=== PATIENT | male | born 1965 | race Hispanic/Latino ===

== ENCOUNTER 2018-08-08 06:07 | Day surgery (SDC) | payer OTHER ==
[2018-07-18 13:37] VITALS: BMI 36.2
[2018-08-08] MEDS ORDERED: Bupivacaine 0.25% 20 ML INJ IJ ONE (07:24)
[2018-08-08] MEDS ORDERED: ceFAZolin 1 gm in NS 2 GM/200 ML BAG IVPB ONE (07:25)
[2018-08-08] MEDS ORDERED: Lidocaine/Epinephrine 1% 1:100000 10 ML IJ ONE (07:25)
[2018-08-08] MEDS ORDERED: Midazolam 2 MG/2 ML VIAL ONE (07:39)
[2018-08-08] MEDS ORDERED: Propofol 10 mg/ml Inj (20 ML) ONE ×2 (07:39→09:56)
[2018-08-08] MEDS ORDERED: Neostigmine 1:1000 (1 mg/ml) Inj ONE (09:07)
[2018-08-08] MEDS: Bupivacaine Liposomal Inj 20 ml INFIL ONE ×2 (09:14→10:19)
[2018-08-08] MEDS: Sodium Chloride 0.9% 40 ML IV ONE ×3 (09:16→10:19)
[2018-08-08] MEDS ORDERED: HYDROmorphone 0.5 mg/0.5 ml ISec IVP PRN (10:41)
--- NOTE | 2018-08-08 10:43 | PCM.SURG1 ---
Surgeon's Initial Post Op Note - Surgeon's Notes Surgeon: MD Ruben Analyst Sales: Myranda PGY3. [employer] Pre-Operative Diagnosis: Abdominal incisional hernia, diastasis recti Operative Findings: Abdominal incisional hernia, diastasis recti, prior mesh in place Post-Operative Diagnosis: Abdominal incisional hernia, diastasis recti Operation Performed: Laparoscopic assisted robotic incisional hernia repair with mesh, Repair of diastasis recti, removal of previous mesh Specimen/Specimens Removed: previous mesh Estimated Blood Loss: EBL {In ML}: 20 Date of Surgery/Procedure: 08/08/18 Time of Surgery/Procedure: 08:00
[2018-08-08 12:53] VITALS: TEMP 97.6
[2018-08-08 13:09] VITALS: RESP 18; O2SAT 97
[2018-08-08 15:48] VITALS: BP 110/68; PULSE 66
--- NOTE | 2018-08-10 14:11 | OP ---
PROCEDURE DATE: 08/08/2018 PREOPERATIVE DIAGNOSES: 1. Incisional hernia, status post open umbilical hernia repair. 2. Possible extensive peritoneal adhesions. 3. Morbid obesity. POSTOPERATIVE DIAGNOSES: 1. Incisional supraumbilical hernia. 2. Diastasis of rectus muscles. 3. Morbid obesity. 4. Extensive intestinal and peritoneal adhesions. PROCEDURES: 1. Robotic incisional hernia repair with mesh. 2. Robotic diastasis of rectus muscles repair with mesh. 3. Robotic removal of old mesh. 4. Robotic extensive lysis of adhesion and enterolysis. 5. Laparoscopic bilateral transversus abdominis plane block placement. SURGEON: Jamey Miranda MD ASSISTANTS: MULU Grubbs and Rosales Whitmore DO, PGY-3, Resident ANESTHESIA: General endotracheal tube anesthesia. ESTIMATED BLOOD LOSS: Around 10 mL. DRAINS: None. PATHOLOGY: The old mesh with attached omentum was sent for the pathology. COMPLICATIONS: None. INTRAOPERATIVE FINDINGS: The patient had approximately 3 x 3 cm incisional hernia on top of the previous mesh repair and the patient also had large diastasis of rectus muscles of approximately 8 x 4 cm size and the patient also had extensive peritoneal and intestinal adhesion to the previous operative site and lysis of adhesion was done. Due to the complexity of the operation, it took approximately 60 to 80 minutes extra for the routine procedure. DESCRIPTION OF PROCEDURE: On intraoperative step, this is a 52-year-old male who was diagnosed with incisional hernia and the patient was status post open umbilical hernia repair and the patient was consented for the robotic incisional hernia repair with mesh, brought to the OR, placed supine on operating table. After induction of anesthesia, the abdomen was prepped and draped in usual sterile fashion. The left upper quadrant incision was made using the Visiport technique. Peritoneal cavity was entered. Pneumo was created and another 2.8 mm port was placed in left flank and left lower quadrant. Robot was brought in. Camera arm as well as arm 1 and arm 2 was docked and first extensive lysis of adhesion as well as enterolysis was done. The small bowel was attached to the mesh and safety, the enterolysis was done and the omentum that was incarcerated into the incisional hernia that was also released back into the peritoneal cavity and now, the patient had diastasis of rectus muscles and the diastasis of rectus muscle was also marked and old mesh was completely removed because the hernia was on top of the old mesh and going from the superior part of the mesh and the first old mesh was completely removed and it was sent off the table for the pathology and now, the defect of the old mesh site as well as incisional hernia site was closed with #1 Prolene V-Loc suture in a two-layer and on superior part, the patient has a diastasis of rectus muscles and the diastasis of rectus muscle was repaired after bringing the right and left side of the rectus muscles in the midline and it was sutured with #1 Prolene V-Loc suture in a two-layer and after proper closure of diastasis of rectus muscles as well as the hernial defect, a large 14 x 8 cm mesh was introduced and mesh was implanted. After proper implantation of the mesh, the laparoscopic bilateral TAP block was given. The 30:30 mL of Exparel with Decadron was injected in the transversus abdominal muscle plane area and after proper TAP block, all the port was taken out under vision. Pneumo was deflated. All the port site was closed in two-layer, the subcu with a 2-0 Vicryl, skin with a 4-0 Monocryl and dry sterile dressing was applied. The patient tolerated the procedure well. Count of instrument and gauze was correct. There was no apparent complication. The patient was extubated in OR, sent to the postanesthesia care unit in stable condition. Jamey Miranda MD
== END 2018-08-08 15:15 | disposition home or self-care (01) ==
LOC: C.SDS 06:07
PROVIDERS: ATTEND Surgery Surgical Critical Care
DX: K43.2 Incisional hernia without obstruction or gangrene (principal); M62.08 Separation of muscle (nontraumatic), other site; E66.01 Morbid (severe) obesity due to excess calories; K66.0 Peritoneal adhesions (postprocedural) (postinfection); E11.9 Type 2 diabetes mellitus without complications; I10 Essential (primary) hypertension
CPT/HCPCS: 22999; 49329; 49654; 64488; 82948; 88304; C1781; J0131; J0690; J1100; J1885; J2250; J2405; J2704; J2710; J3010